=== PATIENT | male | born 1990 | race Caucasian/White ===

== ENCOUNTER 2017-04-14 15:58 | Emergency (ER) | payer OTHER ==
[2017-04-14 16:02] VITALS: TEMP 36.9; Ht 193 cm
[2017-04-14] MEDS ORDERED: SODIUM CHLORIDE 0.9% 1000ML 1,000 ML IV STA ×2 (16:26→19:04)
[2017-04-14] MEDS ORDERED: LIDOCAINE/EPINEPH/TETRACAINE 1 EA SYR EXT STA (16:26)
[2017-04-14] MEDS ORDERED: ONDANSETRON INJ 2 MG/ML 2 ML VIAL IV STA (16:26)
[2017-04-14] MEDS ORDERED: OPTIRAY 320 IV PRN (16:45)
[2017-04-14] MEDS: HYDROmorphone INJ 1 MG/ML SYR IV PRN ×3 (16:50→19:43)
[2017-04-14 16:53] VITALS: O2SAT 98
[2017-04-14 17:07] LABS: BASO % 0.2 %; BASO ABS # 0.03 K/uL (0-0.2); COMPLETE YES; EOS % 0.1 %; HEMATOCRIT 45.1 % (42-52); IG% 0.4 %; LYMPH % 8.5 %; LYMPH ABS # 1.46 K/uL (1.2-3.4); MEAN CELL VOLUME 88.1 fL (80-100); MEAN CORPUSCULAR HEMOGLOBIN 30.9 pg (25-34); MEAN PLATELET VOLUME 10.4 fL (7.4-10.4); MONO % 9.5 %; NEUT % 81.3 %; PLATELET COUNT 220 K/uL (130-400); RED BLOOD COUNT 5.12 M/uL (4.7-6.1); WHITE BLOOD COUNT 17.25 K/uL (4.8-10.8)
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
[2017-04-14 17:26] LABS: ALT/SGPT 26 U/L (12-78); AST/SGOT 39 U/L (15-37); BLOOD UREA NITROGEN 21 mg/dl (7-18); BUN/CREATININE RATIO 21.3 (10-20); CALCIUM 8.9 mg/dl (8.5-10.1); CARBON DIOXIDE 24 mmol/L (21-32); CHLORIDE 103 mmol/L (98-107); CREATININE 0.98 mg/dl (0.60-1.40); GLUCOSE 140 mg/dl (70-99); POTASSIUM 3.7 mmol/L (3.5-5.1); SODIUM 137 mmol/L (136-145)
[2017-04-14 17:42] LABS: ALKALINE PHOSPHATASE 79 U/L (45-117)
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
[2017-04-14] MEDS ORDERED: XYLOCAINE 1%/SOD BICARB 20 ML VIAL INFIL ONE (18:40)
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
[2017-04-14] MEDS ORDERED: OXYCODONE IR HOME PACK PO ONE (20:45)
[2017-04-14] MEDS ORDERED: OXYC1TAB3 PO (20:48)
[2017-04-14 21:05] VITALS: BP 122/76; PULSE 67; O2SAT 99
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
== END 2017-04-14 21:12 | disposition home or self-care (01) ==
LOC: C.EDB 15:59
DX: S09.90XA Unspecified injury of head, initial encounter (principal); S06.0X1A Concussion with loss of consciousness of 30 minutes or less, initial encounter; S51.811A Laceration without foreign body of right forearm, initial encounter; R10.9 Unspecified abdominal pain; T14.8 Other injury of unspecified body region; M25.522 Pain in left elbow; S46.912A Strain of unspecified muscle, fascia and tendon at shoulder and upper arm level, left arm, initial encounter; S40.021A Contusion of right upper arm, initial encounter; V29.20XA Unspecified motorcycle rider injured in collision with unspecified motor vehicles in nontraffic accident, initial encounter; F17.200 Nicotine dependence, unspecified, uncomplicated; Z82.49 Family history of ischemic heart disease and other diseases of the circulatory system